=== PATIENT | male | born 2000 | race African-American/Black ===

== ENCOUNTER 2020-12-26 21:47 | Emergency (ER) | payer SELFPAY ==
[~2020-12-26] VITALS: Ht 175.3 cm; Wt 83.9 kg
[2020-12-26 22:05] VITALS: BP 127/76; Ht 175.3 cm; Wt 83.9 kg
[2020-12-26 23:14] LABS: BASOPHIL % 0.7 % (0.2-1.5); PLATELET COUNT 200 x10^3mcL (152-348); RED CELL DISTRIBUTION WIDTH 12.7 % (12.1-16.2)
[2020-12-26 23:26] LABS: CALCIUM 9.6 mg/dL (8.5-10.1); CARBON DIOXIDE 28.9 mmol/L (21-32); CHLORIDE SERUM 98 mmol/L (98-107); CREATININE SERUM 1.1 mg/dL (0.7-1.3); GFR1 > 60 mL/min; GLUCOSE SERUM 81 mg/dL (74-106); POTASSIUM SERUM 3.7 mmol/L (3.5-5.1); SODIUM SERUM 135 mmol/L (136-145)
[2020-12-26 23:30] LABS: ALBUMIN 4.6 g/dL (3.4-5.0); ALKALINE PHOSPHATASE 62 U/L (46-116); ALT/SGPT 21 U/L (16-63); AST/SGOT 17 U/L (15-37); BILIRUBIN TOTAL 2.1 mg/dL (0.20-1.00); LIPASE 78 IU/L (73-393); TOTAL PROTEIN, SERUM 7.8 g/dL (6.4-8.2)
[2020-12-26] MEDS ORDERED: PEPCID AC20 M2 PO (23:38)
[2020-12-26] MEDS ORDERED: PROTONIX TR40 M1 PO (23:38)
== END 2020-12-26 23:47 | disposition home or self-care (01) ==
LOC: ED 21:47
DX: R10.13 Epigastric pain (principal)
CPT/HCPCS: J1885; J7030